=== PATIENT | female | born 1980 | race Caucasian/White ===

== ENCOUNTER 2018-05-27 07:11 | Emergency (ER) | payer SELFPAY ==
[~2018-05-27] VITALS: Ht 180.3 cm; Wt 61.2 kg
[2018-05-27 07:11] VITALS: BP 118/80
== END 2018-05-27 07:42 | disposition home or self-care (01) ==
LOC: ER 07:14
DX: L02.414 Cutaneous abscess of left upper limb (principal); L02.413 Cutaneous abscess of right upper limb
CPT/HCPCS: 99283; A4606; Z7610